=== PATIENT | female | born 1955 | race Caucasian/White ===

== ENCOUNTER 2016-07-04 18:08 | Emergency (ER) | payer OTHER ==
[~2016-07-04] VITALS: Ht 154.9 cm; Wt 69.0 kg
[~2016-07-04 18:08] MED LIST: AMLO5TAB4 PO; CALC-395 PO; ENAL20TA77 PO; GABA300C PO; HYDR28CR36; LORA-401 PO; NAPR375T PO; PARO10TA76 PO; SMV40T PO; TRAM50TA2 PO; ZOLP5TAB PO
[2016-07-04 18:30] VITALS: Ht 154.9 cm; Wt 69.0 kg
== END 2016-07-04 18:37 | disposition left against medical advice (07) ==
LOC: E/R 18:08
DX: Z53.21 Procedure and treatment not carried out due to patient leaving prior to being seen by health care provider (principal)